=== PATIENT | male | born 1945 | race Caucasian/White ===

== ENCOUNTER 2021-01-10 16:14 | Observation (INO) ==
[2021-01-10 19:23] LABS: Basophils % 0.1 %; Hematocrit 30.3 % (37.5-50.1); Hemoglobin 9.8 g/dL (12.9-16.9); Immature Granulocytes % 0.2 % (0-4); Lymphocytes # 1.2 K/mcL (0.6-4.6); Lymphocytes % 12.7 %; Mean Corpuscular HGB Conc 32.3 g/dL (31.6-35.5); Mean Corpuscular Hemoglobin 29.6 pg (28.0-33.3); Mean Corpuscular Volume 91.5 fL (83.0-100.0); Mean Platelet Volume 10.4 fL (9.4-12.4); Monocytes # 0.7 K/mcL (0.0-1.3); Monocytes % 7.9 %; Neutrophils # 7.3 K/mcL (1.6-8.9); Platelet Count 182 K/mcL (140-400); Red Blood Count 3.31 M/mcL (4.19-5.50); Red Cell Distribution Width 12.1 % (11.5-14.5); Segmented Neutrophils % 79.1 %; White Blood Count 9.3 K/mcL (4.3-11.1)
[2021-01-10 19:45] LABS: Potassium 4.5 mEq/L (3.5-5.1)
[2021-01-10 20:58] LABS: Bilirubin,Urine Negative (Negative); Blood,Urine Small (Negative); Clarity,Urine Ex.Turbid (Clear); Color,Urine Yellow (Yellow); Glucose,Urine (UA) Normal (Normal); Ketones,Urine Negative (Negative); Leukocyte Esterase,Urine Large (Negative); Nitrite,Urine Negative (Negative); Oval Fat Bodies,Urine Present per hpf (None Seen); Protein,Urine 50 mg/dL (Neg-Trace); RBC,Urine 15-30 per hpf (0-3); Specific Gravity,Urine 1.011 (1.010-1.025); Urobilinogen,Urine Normal (Normal); WBC,Urine TNTC per hpf (0-3)
[2021-01-10] MEDS ORDERED: cefTRIAXone 1,000 MG in Water for inj. (sterile) 10 ML IVP ONE (21:20)
[2021-01-10] MEDS ORDERED: Naloxone 0.4 MG/ML INJ IVP PRN (22:10)
[2021-01-10] MEDS ORDERED: Ondansetron 4 MG/2 ML VIAL IVP PRN (22:10)
[2021-01-10] MEDS ORDERED: *HR* Dextrose 50 % in Water (Syg) 50 ML SYRINGE IVP PRN (22:19)
[2021-01-10] MEDS ORDERED: Dextrose Gel 15 GM/37.5 ML TUBE PO PRN ×2 (22:19)
[2021-01-10] MEDS ORDERED: D5% in Water 1,000 ML IVC PRN (22:19)
[2021-01-10] MEDS ORDERED: 0.9 % Sodium Chloride 1,000 ML IVC SCH (22:30)
[2021-01-11] MEDS: *HR* Heparin 5,000 UNIT/ML VIAL SQ SCH ×2 (05:22→18:01)
[2021-01-11 07:01] LABS: Basophils % 0.2 %; Hemoglobin 8.6 g/dL (12.9-16.9); Immature Granulocytes % 0.2 % (0-4); Lymphocytes # 1.5 K/mcL (0.6-4.6); Lymphocytes % 18.2 %; Mean Corpuscular HGB Conc 31.9 g/dL (31.6-35.5); Mean Corpuscular Hemoglobin 28.9 pg (28.0-33.3); Mean Corpuscular Volume 90.6 fL (83.0-100.0); Mean Platelet Volume 10.4 fL (9.4-12.4); Monocytes # 0.7 K/mcL (0.0-1.3); Monocytes % 8.3 %; Neutrophils # 6.2 K/mcL (1.6-8.9); Platelet Count 159 K/mcL (140-400); Red Blood Count 2.98 M/mcL (4.19-5.50); Red Cell Distribution Width 12.2 % (11.5-14.5); Segmented Neutrophils % 73.1 %; White Blood Count 8.5 K/mcL (4.3-11.1)
[2021-01-11 07:19] LABS: Calcium 8.7 mg/dL (8.6-10.3); Magnesium 1.8 mg/dL (1.6-2.6); Phosphorous 3.9 mg/dL (2.7-4.5); Potassium 4.2 mEq/L (3.5-5.1)
[2021-01-11] MEDS: 0.9 % Sodium Chloride 1,000 ML IVC SCH ×2 (07:19→23:30)
[2021-01-11] MEDS: Insulin LISPRO 300 UNITS/3 ML VIAL SUBQ SCH ×4 (07:51→21:22)
[2021-01-11 07:52] LABS: Estimated Average Glucose 163 mg/dl; Hemoglobin A1C 7.3 %
[2021-01-11] MEDS: carvediloL 6.25 MG TABLET PO SCH ×2 (08:34→18:01)
[2021-01-11] MEDS: Aspirin Enteric Coated 81 MG Tablet PO SCH (08:35)
[2021-01-11] MEDS: cefTRIAXone 1,000 MG in Water for inj. (sterile) 10 ML IVP SCH (08:35)
[2021-01-12] MEDS: *HR* Heparin 5,000 UNIT/ML VIAL SQ SCH ×2 (04:38→16:50)
[2021-01-12 05:31] LABS: Hematocrit 28.6 % (37.5-50.1); Hemoglobin 9.3 g/dL (12.9-16.9); Mean Corpuscular HGB Conc 32.5 g/dL (31.6-35.5); Mean Corpuscular Hemoglobin 29.4 pg (28.0-33.3); Mean Corpuscular Volume 90.5 fL (83.0-100.0); Mean Platelet Volume 10.5 fL (9.4-12.4); Platelet Count 170 K/mcL (140-400); Red Blood Count 3.16 M/mcL (4.19-5.50); Red Cell Distribution Width 11.9 % (11.5-14.5); White Blood Count 8.9 K/mcL (4.3-11.1)
[2021-01-12 05:51] LABS: Calcium 8.7 mg/dL (8.6-10.3); Magnesium 1.7 mg/dL (1.6-2.6); Phosphorous 3.6 mg/dL (2.7-4.5); Potassium 4.2 mEq/L (3.5-5.1)
[2021-01-12] MEDS: Insulin LISPRO 300 UNITS/3 ML VIAL SUBQ SCH ×4 (07:58→21:45)
[2021-01-12] MEDS: carvediloL 6.25 MG TABLET PO SCH ×2 (08:10→16:48)
[2021-01-12] MEDS: cefTRIAXone 1,000 MG in Water for inj. (sterile) 10 ML IVP SCH (08:11)
[2021-01-12] MEDS: Finasteride 5 MG TABLET PO SCH (08:11)
[2021-01-12] MEDS: Aspirin Enteric Coated 81 MG Tablet PO SCH (08:12)
[2021-01-12] MEDS: 0.9 % Sodium Chloride 1,000 ML IVC SCH (16:38)
[2021-01-13 01:02] LABS: Hematocrit 28.1 % (37.5-50.1); Hemoglobin 8.8 g/dL (12.9-16.9); Mean Corpuscular HGB Conc 31.3 g/dL (31.6-35.5); Mean Corpuscular Hemoglobin 28.3 pg (28.0-33.3); Mean Corpuscular Volume 90.4 fL (83.0-100.0); Mean Platelet Volume 10.4 fL (9.4-12.4); Platelet Count 161 K/mcL (140-400); Red Blood Count 3.11 M/mcL (4.19-5.50); Red Cell Distribution Width 11.9 % (11.5-14.5); White Blood Count 7.9 K/mcL (4.3-11.1)
[2021-01-13 01:16] LABS: Magnesium 1.6 mg/dL (1.6-2.6); Phosphorous 3.6 mg/dL (2.7-4.5); Potassium 4.2 mEq/L (3.5-5.1)
[2021-01-13] MEDS: *HR* Heparin 5,000 UNIT/ML VIAL SQ SCH (06:25)
[2021-01-13] MEDS: Insulin LISPRO 300 UNITS/3 ML VIAL SUBQ SCH ×2 (07:52→11:46)
[2021-01-13] MEDS: Aspirin Enteric Coated 81 MG Tablet PO SCH (09:35)
[2021-01-13] MEDS: Finasteride 5 MG TABLET PO SCH (09:35)
[2021-01-13] MEDS: carvediloL 6.25 MG TABLET PO SCH (09:35)
[2021-01-13] MEDS: cefTRIAXone 1,000 MG in Water for inj. (sterile) 10 ML IVP SCH (09:48)
[2021-01-13] MEDS: 0.9 % Sodium Chloride 1,000 ML IVC SCH (09:49)
[2021-01-13 10:30] VITALS: BP 144/71; PULSE 57; TEMP 98.2; O2SAT 96
[2021-01-13 18:53] LABS: Lambda Qnt Free Light Chains 31.55 mg/L (5.71-26.30)
[2021-01-14 10:34] LABS: Kappa Qnt Free Light Chains 76.63 mg/L (3.30-19.40)
[2021-01-14 10:44] LABS: ANA IgG by ELISA DETECTED (None Detected)
[2021-01-15 18:55] LABS: ANA HEp-2 IgG IFA <1:80 (<1:80)
== END 2021-01-13 15:00 | disposition home or self-care (01) ==
LOC: EMEROOARM 16:14 → 2ANU 16:14 → SUATTDRO 23:15 → 2ANU 01-11 01:30
PROVIDERS: ADMIT Family Medicine; ATTEND Internal Medicine

== ENCOUNTER 2021-07-26 00:01 | Inpatient (IN) ==
[2021-07-26 00:35] LABS: Basophils % 0.4 %; Hematocrit 30.9 % (37.5-50.1); Hemoglobin 10.2 g/dL (12.9-16.9); Immature Granulocytes % 0.3 % (0-4); Lymphocytes # 1.7 K/mcL (0.6-4.6); Lymphocytes % 18.1 %; Mean Corpuscular Hemoglobin 29.1 pg (28.0-33.3); Mean Corpuscular Volume 88.3 fL (83.0-100.0); Mean Platelet Volume 9.5 fL (9.4-12.4); Monocytes # 0.9 K/mcL (0.0-1.3); Monocytes % 10.1 %; Neutrophils # 6.6 K/mcL (1.6-8.9); Platelet Count 265 K/mcL (140-400); Red Cell Distribution Width 12.3 % (11.5-14.5); Segmented Neutrophils % 71.1 %; White Blood Count 9.3 K/mcL (4.3-11.1)
[2021-07-26 00:48] LABS: INR 1.1; Prothrombin Time 12.1 Seconds (9.4-12.1)
[2021-07-26 00:51] LABS: Activated Partial Thrombo Time 31.3 Seconds (26.0-36.0)
[2021-07-26 01:00] LABS: Calcium 8.8 mg/dL (8.6-10.3); Potassium 4.6 mEq/L (3.5-5.1)
[2021-07-26] MEDS ORDERED: Lidocaine Jelly 11 ml Syringe TP ONE (01:15)
[2021-07-26] MEDS ORDERED: 0.9 % Sodium Chloride 500 ML IVC ONE (01:36)
[2021-07-26] MEDS ORDERED: Melatonin 3 MG TABLET PO PRN (03:48)
[2021-07-26] MEDS ORDERED: Naloxone 0.4 MG/ML INJ IVP PRN (03:48)
[2021-07-26] MEDS ORDERED: 0.9 % Sodium Chloride 1,000 ML IVC SCH (04:00)
[2021-07-26] MEDS ORDERED: D5% in Water 1,000 ML IVC PRN (04:44)
[2021-07-26] MEDS ORDERED: *HR* Dextrose 50 % in Water (Syg) 50 ML SYRINGE IVP PRN (04:44)
[2021-07-26] MEDS ORDERED: Dextrose 4 GM Chewable Tablets PO PRN ×2 (04:44)
[2021-07-26] MEDS ORDERED: Insulin LISPRO 300 UNITS/3 ML VIAL SUBQ SCH (06:00)
[2021-07-26 07:45] LABS: Hematocrit 31.7 % (37.5-50.1); Hemoglobin 10.1 g/dL (12.9-16.9); Mean Corpuscular HGB Conc 31.9 g/dL (31.6-35.5); Mean Corpuscular Volume 91.1 fL (83.0-100.0); Mean Platelet Volume 9.8 fL (9.4-12.4); Platelet Count 247 K/mcL (140-400); Red Blood Count 3.48 M/mcL (4.19-5.50); Red Cell Distribution Width 12.3 % (11.5-14.5)
[2021-07-26] MEDS ORDERED: *HR* OxyCODONE/APAP 5/325 TABLET PO ONE (07:48)
[2021-07-26 07:50] LABS: White Blood Count 15.8 K/mcL (4.3-11.1)
[2021-07-26 08:07] LABS: Calcium 8.4 mg/dL (8.6-10.3); Potassium 4.5 mEq/L (3.5-5.1)
[2021-07-26] MEDS ORDERED: Acetaminophen 325 MG TABLET PO PRN (09:21)
[2021-07-26] MEDS: Cefepime HCl 1,000 MG in 0.9 % Sodium Chloride 10 ML IVP SCH (09:30)
[2021-07-26 11:07] LABS: RBC,Urine TNTC per hpf (0-3); Squamous Epithelial Cell,Urine Few per hpf (None-Few); WBC,Urine TNTC per hpf (0-3)
[2021-07-26] MEDS: 0.9 % Sodium Chloride 1,000 ML IVC SCH ×2 (12:04→22:34)
[2021-07-26] MEDS: carvediloL 6.25 MG TABLET PO SCH ×2 (14:59→20:14)
[2021-07-26 16:10] LABS: Bilirubin,Urine Negative (Negative); Blood,Urine Large (Negative); Clarity,Urine Turbid (Clear); Color,Urine Light-Brown (Yellow); Glucose,Urine (UA) Normal (Normal); Ketones,Urine Negative (Negative); Leukocyte Esterase,Urine Large (Negative); Nitrite,Urine Negative (Negative); PH,Urine 6.5 pH Units (5.0-8.0); Protein,Urine 30 mg/dL (Neg-Trace); Specific Gravity,Urine 1.006 (1.010-1.025); Urobilinogen,Urine Normal (Normal)
[2021-07-26] MEDS: Insulin LISPRO 300 UNITS/3 ML VIAL SUBQ SCH (16:22)
[2021-07-26 16:47] LABS: Hematocrit 29.3 % (37.5-50.1); Hemoglobin 9.4 g/dL (12.9-16.9)
[2021-07-26] MEDS ORDERED: methocarbamoL 500 MG TABLET PO ONE (17:12)
[2021-07-26] MEDS: *HR* OxyCODONE/APAP 5/325 TABLET PO PRN (17:14)
[2021-07-26] MEDS: Ondansetron 4 MG/2 ML VIAL IVP PRN (17:15)
[2021-07-26] MEDS: Finasteride 5 MG TABLET PO SCH (17:15)
[2021-07-26] MEDS ORDERED: Ondansetron 4 MG/2 ML VIAL IVP ONE (19:47)
[2021-07-27 00:54] LABS: Basophils % 0.1 %; Hematocrit 26.9 % (37.5-50.1); Hemoglobin 8.6 g/dL (12.9-16.9); Immature Granulocytes % 0.6 % (0-4); Lymphocytes # 0.6 K/mcL (0.6-4.6); Lymphocytes % 3.5 %; Mean Corpuscular Hemoglobin 28.7 pg (28.0-33.3); Mean Corpuscular Volume 89.7 fL (83.0-100.0); Mean Platelet Volume 9.7 fL (9.4-12.4); Monocytes # 0.4 K/mcL (0.0-1.3); Monocytes % 2.5 %; Neutrophils # 16.6 K/mcL (1.6-8.9); Platelet Count 193 K/mcL (140-400); Red Cell Distribution Width 12.5 % (11.5-14.5); Segmented Neutrophils % 93.3 %; White Blood Count 17.8 K/mcL (4.3-11.1)
[2021-07-27 01:01] LABS: INR 1.3; Prothrombin Time 14.6 Seconds (9.4-12.1)
[2021-07-27 01:13] LABS: Calcium 8.2 mg/dL (8.6-10.3); Potassium 5.1 mEq/L (3.5-5.1)
[2021-07-27] MEDS: Ondansetron 4 MG/2 ML VIAL IVP PRN (03:19)
[2021-07-27] MEDS: methocarbamoL 500 MG TABLET PO SCH ×2 (07:58→20:32)
[2021-07-27] MEDS: Cefepime HCl 1,000 MG in 0.9 % Sodium Chloride 10 ML IVP SCH (08:01)
[2021-07-27] MEDS: carvediloL 6.25 MG TABLET PO SCH ×2 (08:01→17:01)
[2021-07-27] MEDS: 0.9 % Sodium Chloride 1,000 ML IVC SCH ×2 (08:03→18:10)
[2021-07-27] MEDS: Insulin LISPRO 300 UNITS/3 ML VIAL SUBQ SCH ×3 (08:04→16:24)
[2021-07-27] MEDS: Finasteride 5 MG TABLET PO SCH (17:02)
[2021-07-28] MEDS: 0.9 % Sodium Chloride 1,000 ML IVC SCH ×2 (03:12→17:12)
[2021-07-28] MEDS: *HR* OxyCODONE/APAP 5/325 TABLET PO PRN (05:01)
[2021-07-28 05:59] LABS: Calcium 8.2 mg/dL (8.6-10.3); Potassium 4.6 mEq/L (3.5-5.1)
[2021-07-28 06:17] LABS: Hematocrit 26.5 % (37.5-50.1); Hemoglobin 8.5 g/dL (12.9-16.9); Mean Corpuscular HGB Conc 32.1 g/dL (31.6-35.5); Mean Corpuscular Hemoglobin 29.2 pg (28.0-33.3); Mean Corpuscular Volume 91.1 fL (83.0-100.0); Mean Platelet Volume 10.2 fL (9.4-12.4); Platelet Count 198 K/mcL (140-400); Red Blood Count 2.91 M/mcL (4.19-5.50); Red Cell Distribution Width 12.3 % (11.5-14.5)
[2021-07-28] MEDS ORDERED: Ondansetron 4 MG/2 ML VIAL ONE (06:59)
[2021-07-28] MEDS ORDERED: Lidocaine -MPF 2% 2 ML VIAL ONE (06:59)
[2021-07-28] MEDS ORDERED: *HR* Propofol 200 MG/20 ML VIAL IVP ONE (07:00)
[2021-07-28] MEDS ORDERED: *HR* Succinylcholine 200 MG/10 ML VIAL IVP ONE (07:00)
[2021-07-28] MEDS ORDERED: *HR* FentaNYL (PF) 100 MCG/2 ML VIAL ONE (07:00)
[2021-07-28] MEDS: carvediloL 6.25 MG TABLET PO SCH ×2 (07:17→17:14)
[2021-07-28] MEDS: Insulin LISPRO 300 UNITS/3 ML VIAL SUBQ SCH ×3 (07:17→17:09)
[2021-07-28] MEDS ORDERED: Isovue-300 50ML VIAL ONE (07:18)
[2021-07-28] MEDS ORDERED: Ondansetron 4 MG/2 ML VIAL IVP PRN (07:39)
[2021-07-28] MEDS ORDERED: *HR* FentaNYL (PF) 100 MCG/2 ML VIAL IVP PRN (07:39)
[2021-07-28] MEDS: Cefepime HCl 1,000 MG in 0.9 % Sodium Chloride 10 ML IVP SCH (07:43)
[2021-07-28] MEDS ORDERED: D5% in Water 1,000 ML IVC PRN (10:50)
[2021-07-28] MEDS ORDERED: *HR* Dextrose 50 % in Water (Syg) 50 ML SYRINGE IVP PRN (10:50)
[2021-07-28] MEDS ORDERED: Naloxone 0.4 MG/ML INJ IVP PRN (10:50)
[2021-07-28] MEDS ORDERED: Dextrose 4 GM Chewable Tablets PO PRN ×2 (10:50)
[2021-07-28] MEDS: Finasteride 5 MG TABLET PO SCH (17:15)
[2021-07-28] MEDS: methocarbamoL 500 MG TABLET PO SCH (20:53)
[2021-07-29 01:42] LABS: Basophils % 0.1 %; Hematocrit 27.1 % (37.5-50.1); Hemoglobin 8.7 g/dL (12.9-16.9); Immature Granulocytes % 0.4 % (0-4); Lymphocytes # 0.5 K/mcL (0.6-4.6); Lymphocytes % 4.1 %; Mean Corpuscular HGB Conc 32.1 g/dL (31.6-35.5); Mean Corpuscular Hemoglobin 29.3 pg (28.0-33.3); Mean Corpuscular Volume 91.2 fL (83.0-100.0); Mean Platelet Volume 9.9 fL (9.4-12.4); Monocytes # 0.8 K/mcL (0.0-1.3); Monocytes % 6.4 %; Platelet Count 204 K/mcL (140-400); Red Blood Count 2.97 M/mcL (4.19-5.50); Red Cell Distribution Width 12.5 % (11.5-14.5)
[2021-07-29 01:45] LABS: White Blood Count 12.3 K/mcL (4.3-11.1)
[2021-07-29 02:02] LABS: Calcium 8.2 mg/dL (8.6-10.3); Potassium 5.2 mEq/L (3.5-5.1)
[2021-07-29] MEDS: 0.9 % Sodium Chloride 1,000 ML IVC SCH ×2 (02:42→13:21)
[2021-07-29] MEDS: *HR* OxyCODONE/APAP 5/325 TABLET PO PRN (06:47)
[2021-07-29] MEDS: Insulin LISPRO 300 UNITS/3 ML VIAL SUBQ SCH ×3 (08:05→17:48)
[2021-07-29] MEDS: Cefepime HCl 1,000 MG in 0.9 % Sodium Chloride 10 ML IVP SCH (08:06)
[2021-07-29] MEDS: methocarbamoL 500 MG TABLET PO SCH ×2 (08:06→22:22)
[2021-07-29] MEDS: carvediloL 6.25 MG TABLET PO SCH ×2 (08:07→17:47)
[2021-07-29] MEDS: Acetaminophen 325 MG TABLET PO PRN ×2 (08:08→22:47)
[2021-07-29] MEDS: Finasteride 5 MG TABLET PO SCH (17:48)
[2021-07-30] MEDS: 0.9 % Sodium Chloride 1,000 ML IVC SCH (02:04)
[2021-07-30] MEDS: *HR* OxyCODONE/APAP 5/325 TABLET PO PRN (04:39)
[2021-07-30 06:00] LABS: Hematocrit 26.7 % (37.5-50.1); Hemoglobin 8.4 g/dL (12.9-16.9); Mean Corpuscular HGB Conc 31.5 g/dL (31.6-35.5); Mean Corpuscular Hemoglobin 29.3 pg (28.0-33.3); Mean Platelet Volume 9.6 fL (9.4-12.4); Platelet Count 157 K/mcL (140-400); Red Blood Count 2.87 M/mcL (4.19-5.50); Red Cell Distribution Width 12.7 % (11.5-14.5)
[2021-07-30 06:11] LABS: White Blood Count 4.3 K/mcL (4.3-11.1)
[2021-07-30 06:15] LABS: Calcium 7.8 mg/dL (8.6-10.3); Potassium 4.3 mEq/L (3.5-5.1)
[2021-07-30] MEDS: Insulin LISPRO 300 UNITS/3 ML VIAL SUBQ SCH (07:38)
[2021-07-30] MEDS: carvediloL 6.25 MG TABLET PO SCH (07:39)
[2021-07-30] MEDS: methocarbamoL 500 MG TABLET PO SCH (07:40)
[2021-07-30] MEDS: Cefepime HCl 1,000 MG in 0.9 % Sodium Chloride 10 ML IVP SCH (07:41)
[2021-07-30 11:26] VITALS: BP 124/55; PULSE 59; TEMP 97.7; O2SAT 97
== END 2021-07-30 12:38 | disposition home or self-care (01) | DRG 660 ==
LOC: 3ANU 00:01 → EMEROOARM 00:01 → SUATTDRO 03:39 → 3ANU 04:13
PROVIDERS: ADMIT Family Medicine; ATTEND Family Medicine